=== PATIENT | male | born 1985 | race Caucasian/White ===

== ENCOUNTER 2018-04-07 18:09 | Inpatient (IN) ==
[2018-04-07] MEDS ORDERED: Diphtheria/Tetanus/Pertussis Vaccine Inj 0.5 ML Syringe IM ONE (18:13)
--- NOTE | 2018-04-07 18:28 | CT ---
EXAM DATE: 04/07/2018 6:24 PM EST AGE/SEX: 89 years / Male INDICATIONS: Trauma alert, fall off roof. CLINICAL DATA: This is the patient's initial encounter. Patient reports that signs and symptoms have been present for 1 day and indicates a pain score of Nonresponsive. MEDICAL/SURGICAL HISTORY: Non-responsive. Non-responsive. RADIATION DOSE: 66.34 CTDI (mGy) COMPARISON: No prior exams available for comparison. TECHNIQUE: CT of the head without contrast. Using automated exposure control and adjustment of the mA and/or kV according to patient size, radiation dose was kept as low as reasonably achievable to ob tain optimal diagnostic quality images. DICOM format image data is available electronically for revi ew and comparison. FINDINGS: The patient is tilted in the scanning gantry. There is mild streak artifact Cerebrum: The ventricles are normal for age. No evidence of midline shift, mass lesion, hemorrhage or acute infarction. No extraaxial fluid collections are seen. Posterior Fossa: The cerebellum and brainstem are intact. The 4th ventricle is midline. The cerebe llopontine angle is unremarkable. Extracranial: The visualized portion of the orbits is intact. There is a small retention cyst in the right maxillary sinus. Skull: The calvaria is intact. No evidence of skull fracture. CONCLUSION: 1. Negative trauma CT. . Electronically signed by: Cornel Robertson MD 04/07/2018 6:27 PM EST
--- NOTE | 2018-04-07 18:30 | XR ---
EXAM DATE: 04/07/2018 6:27 PM EST AGE/SEX: 89 years / Male INDICATIONS: Trauma alert. Patient fell from a roof today. CLINICAL DATA: This is the patient's initial encounter. Patient reports that signs and symptoms have been present for 1 day and indicates a pain score of Nonresponsive. MEDICAL/SURGICAL HISTORY: Non-responsive. Non-responsive. COMPARISON: No prior exams available for comparison. FINDINGS: A single AP view of the chest demonstrates the lungs to be symmetrically aerated without evidence of mass, infiltrate or effusion. The cardiomediastinal contours are unremarkable. Osseous structures a re intact. There is overlying artifact from a backboard. There is catheter tubing projected over the chest. CONCLUSION: Negative single view trauma study. Electronically signed by: Cornel Robertson MD 04/07/2018 6:29 PM EST
[2018-04-07 18:43] LABS: Baso % (Auto) 0.1 % (0.0-2.0); Eos # (Auto) 0.2 th/mm3 (0.0-0.4); Eos % (Auto) 2.8 % (0.0-4.0); Hematocrit 42.3 % (39.0-51.0); Hemoglobin 14.4 gm/dL (13.0-17.0); Lymph % (Auto) 22.3 % (9.0-44.0); Mean Corpuscular Hemoglobin 31.2 pg (27.0-34.0); Mean Corpuscular Volume 91.7 fL (80.0-100.0); Mean Platelet Volume 8.5 fL (7.0-11.0); Mono # (Auto) 0.7 th/mm3 (0.0-0.9); Mono % (Auto) 7.7 % (0.0-8.0); Neut # (Auto) 5.9 th/mm3 (1.8-7.7); Neut % (Auto) 67.1 % (16.0-70.0); Platelet Count 270 th/mm3 (150-450); Red Blood Count 4.61 mil/mm3 (4.50-5.90); Red Cell Distribution Width 13.1 % (11.6-17.2); White Blood Count 8.8 th/mm3 (4.0-11.0)
--- NOTE | 2018-04-07 18:48 | CT ---
EXAM DATE: 04/07/2018 6:38 PM EST AGE/SEX: 89 years / Male INDICATIONS: Trauma alert, fall off roof. CLINICAL DATA: This is the patient's initial encounter. Patient reports that signs and symptoms have been present for 1 day and indicates a pain score of Nonresponsive. MEDICAL/SURGICAL HISTORY: Non-responsive. Non-responsive. ORAL CONTRAST: No oral contrast ingested. RADIATION DOSE: 5.68 CTDI (mGy) ; Combined studies COMPARISON: No prior exams available for comparison. TECHNIQUE: Multiple contiguous axial images were obtained through the abdomen and pelvis following b olus infusion of 95 ml Omnipaque 350 (iohexol) nonionic water-soluble contrast as a cumulative dose for multiple exams. No oral contrast ingested. Using automated exposure control and adjustment of t he mA and/or kV according to patient size, radiation dose was kept as low as reasonably achievable to obtain optimal diagnostic quality images. DICOM format image data is available electronically for r eview and comparison. FINDINGS: Lower Lungs: The visualized lower lungs are clear. Liver: The liver has a homogeneous density without space-occupying lesion. There is no dilation of th e biliary tree. The gallbladder is unremarkable in appearance. Spleen: Homogeneous density without enlargement. Pancreas: Unremarkable without mass or calcification. Kidneys: Normal in size and shape. No evidence of mass or hydronephrosis. Adrenal Glands: Unremarkable. Aorta: The aorta and proximal iliac vessels are grossly unremarkable without aneurysmal dilation. Bowel/Mesentery: The bowel loops are grossly unremarkable. The cecum and sigmoid colon have a normal configuration. Abdominal Wall: The anterior abdominal wall is intact. There is a focal soft tissue laceration summer g the left lateral flank region which extends through the subcutaneous fat with with subcutaneous emp hysema extending along the lateral abdominal wall musculature. Retroperitoneum: No evidence of adenopathy in the retrocrural, para-aortic, or deep pelvic regions. Bladder: Contours are smooth. Reproductive Organs: No abnormal masses or calcifications seen. Inguinal: The inguinal region is unremarkable without evidence of adenopathy. Bony Structures: 2. There is a small subtle linear gas collection along the right anterior lateral lower ribs best seen on axial images numbers 30 through 34. This measures up to approximately 2.5 x 0 .5 cm in greatest diameter. This is of unclear significance and could represent dissected air the janell ng the musculature or possibly could be intra-abdominal. CONCLUSION: 1. Focal soft tissue laceration along the left lateral flank region which extends through the subcut aneous fat with emphysema extending along the lateral abdominal wall musculature. 2. There is a small subtle linear gas collection along the right anterior lateral lower ribs best se en on axial images numbers 30 through 34. This measures up to approximately 2.5 x 0.5 cm in greatest diameter. This is of unclear significance and could represent dissected air along the along the muscu lature or possibly could be intra-abdominal. 3. No evidence of acute visceral injury. 4. Fractures of the left posterior lateral 11th and 12th ribs. Electronically signed by: Cornel Robertson MD 04/07/2018 6:47 PM EST
--- NOTE | 2018-04-07 18:51 | CT ---
EXAM DATE: 04/07/2018 6:38 PM EST AGE/SEX: 89 years / Male INDICATIONS: Trauma alert, fall off roof. CLINICAL DATA: This is the patient's initial encounter. Patient reports that signs and symptoms have been present for 1 day and indicates a pain score of Nonresponsive. MEDICAL/SURGICAL HISTORY: Non-responsive. Non-responsive. RADIATION DOSE: 5.68 CTDI (mGy) ; Combined studies COMPARISON: No prior exams available for comparison. TECHNIQUE: Multiple contiguous axial images were obtained through the chest during bolus infusion of 95 ml Omnipaque 350 (iohexol) nonionic water-soluble contrast as a cumulative dose for multiple exa ms. Images were obtained in suspended respiration using multiple row detector helical technique. U sing automated exposure control and adjustment of the mA and/or kV according to patient size, radiati on dose was kept as low as reasonably achievable to obtain optimal diagnostic quality images. DICOM format image data is available electronically for review and comparison. FINDINGS: Lungs: The lungs are symmetrically aerated. No infiltrates or nodular densities are seen. There is a minute collection of gas along the anterior base of the heart seen best on axial image #43. This co uld represent a small pneumothorax. Mediastinum: There is good visualization of the great vessels of the middle mediastinum. No evidenc e of mediastinal or hilar adenopathy/mass. Pleurae: No evidence of focal thickening or pleural effusion. Axillae: Unremarkable. Bony Structures: There are subtle nondisplaced fractures of the left posterior 11th and 12th ribs. Miscellaneous: The examination was extended to include the upper abdomen, and both adrenal glands ar e normal in size and configuration. CONCLUSION: 1. Small gas collection along the anterior base of the heart which could represent a tiny pneumothor ax. 2. Subtle nondisplaced fractures of the left posterior 11th and 12th ribs. Electronically signed by: Cornel Robertson MD 04/07/2018 6:50 PM EST
[2018-04-07 18:55] LABS: Activated Partial Thrombo Time 21.7 sec (23.4-31.7); INR 1.1 Ratio; Prothrombin Time 11.5 sec (9.8-11.6)
--- NOTE | 2018-04-07 18:55 | CT ---
EXAM DATE: 04/07/2018 6:41 PM EST AGE/SEX: 89 years / Male INDICATIONS: Trauma alert, fall off roof. CLINICAL DATA: This is the patient's initial encounter. Patient reports that signs and symptoms have been present for 1 day and indicates a pain score of Nonresponsive. MEDICAL/SURGICAL HISTORY: Non-responsive. Non-responsive. RADIATION DOSE: 23.47 CTDI (mGy) COMPARISON: No prior exams available for comparison. TECHNIQUE: Contiguous axial images were obtained using helical multirow detector technique. The vol umetric data was post-processed with multiplanar reconstruction in oblique axial, sagittal, and coron al planes. Using automated exposure control and adjustment of the mA and/or kV according to patient s ize, radiation dose was kept as low as reasonably achievable to obtain optimal diagnostic quality katlin ges. DICOM format image data is available electronically for review and comparison. FINDINGS: Vertebrae: Normal vertebral body height. Alignment: Normal. No subluxation. The axial images demonstrate that the vertebral bodies and posterior elements are intact with no evid ence of fracture. The prevertebral soft tissues are within normal limits. CONCLUSION: 1. Negative trauma CT. Electronically signed by: Cornel Robertson MD 04/07/2018 6:54 PM EST
[2018-04-07] MEDS ORDERED: Morphine Inj 4 MG/ML Vial IV.PUSH ONE (19:06)
[2018-04-07] MEDS ORDERED: Acetaminophen 325 MG Tablet PO PRN (19:13)
[2018-04-07] MEDS ORDERED: Lidocaine 5% Patch T-DERMAL ONE (19:15)
--- NOTE | 2018-04-07 19:21 | P.HPCC ---
History of Present Illness Primary Care Physician: No Primary Care Physician Chief Complaint: Lower back pain History of Present Illness: 32-year-old gentleman who was working on a roof when he fell approximately 15 feet by report. There was no loss of consciousness but he was brought in as a trauma alert for back pain suspicion of spinal cord injury as well as a penetrating left flank injury. Patient arrived alert and oriented with a Lance Coma Scale of 15 he was in pain but no acute distress he had a laceration to his left flank and abrasions across his chest and abdomen and superficial abrasions on his arms. 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 - Medical / Surgical Hx Neg / Unobtainable Medical Problems Denied: Yes Surgical History: No Previous Surgery - Tobacco History Second Hand Smoke Exposure: No Tobacco Use In Past 30 Days: No Smoking Status: Never smoker - Alcohol History How Often Do You Have a Drink Containing Alcohol: Never - Substance Use History Substance History: No History of Abuse - Travel History Recent Travel in the [facility] Within the Last 8 Weeks: No Recent Travel Out of the Country Within the Last 8 Weeks: No Medications and Allergies Active Medications: Active Medications Patch Removal (Remove Old Patch) 1 each T-DERMAL HS CARMELLA Allergies Allergy/AdvReac Type Severity Reaction Status Date / Time No Allergy Information Allergy Unverified 04/07/18 18:09 Available Home Medications Medication Instructions Recorded Confirmed Type No Known Home Medications 04/07/18 04/07/18 History Results - Labs CBC & Chem 7: 04/07/18 18:11 Labs: Short CBC 04/07/18 Range/Units 18:11 WBC 8.8 (4.0-11.0) th/mm3 Hgb 14.4 (13.0-17.0) gm/dL Hct 42.3 (39.0-51.0) % Plt Count 270 (150-450) th/mm3 - Imaging Impressions Chest X-Ray 04/07/18 18:10 CONCLUSION: Negative single view trauma study. Abdomen/Pelvis CT 04/07/18 18:12 CONCLUSION: 1. Focal soft tissue laceration along the left lateral flank region which extends through the subcutaneous fat with emphysema extending along the lateral abdominal wall musculature. 2. There is a small subtle linear gas collection along the right anterior lateral lower ribs best seen on axial images numbers 30 through 34. This measures up to approximately 2.5 x 0.5 cm in greatest diameter. This is of unclear significance and could represent dissected air along the along the musculature or possibly could be intra-abdominal. 3. No evidence of acute visceral injury. 4. Fractures of the left posterior lateral 11th and 12th ribs. Chest CT 04/07/18 18:12 CONCLUSION: 1. Small gas collection along the anterior base of the heart which could represent a tiny pneumothorax. 2. Subtle nondisplaced fractures of the left posterior 11th and 12th ribs. Head CT 04/07/18 18:12 CONCLUSION: 1. Negative trauma CT. . Cervical Spine CT 04/07/18 18:13 CONCLUSION: 1. Negative trauma CT. Exam Vital signs: Vital Signs 04/07/18 18:15 04/07/18 19:09 Pulse Rate 86 Pulse Oximetry 97 Intake & Output 04/07/18 04/07/18 04/08/18 06:59 18:59 06:59 Weight 99.79 kg - Constitutional mild distress - Routine HEENT Exam Head: Present: normocephalic, atraumatic Eye: Present: EOMI, PERRL ENT: Present: mucous membranes moist - Routine Neck Exam Present: trachea midline. Absent: tenderness - Routine Chest/Breast/Axilla Exam Chest wall: Absent: tenderness - Routine Respiratory Exam Present: CTA bilaterally - Routine Cardiovascular Exam Present: RRR - Routine Abdominal Exam Present: soft. Absent: tenderness, distended - Routine Extremities Exam Absent: cyanosis, clubbing, edema - Routine Skin Exam Present: wounds (1 cm deep laceration to the left lateral abdominal wall with surrounding abrasions through the subcutaneous fat) - Routine Neurological Exam Present: alert, oriented X3, CN II-XII intact. Absent: sensory deficit, motor deficit Caprini VTE Risk Assessment Caprini VTE Risk Assessment: No/Low Risk (score <= 1) VTE Pharmacological Exception Reason: Hemorrhage Caprini Risk Assessment Model: Point Value = 1 Point Value = 2 Point Value = 3 Point Value = 5 Age 41-60 Minor surgery BMI > 25 kg/m2 Swollen legs Varicose veins or History of unexplained or recurrent spontaneous Oral contraceptives or hormone replacement Sepsis (< 1 month) Serious lung disease, including pneumonia (< 1 month) Abnormal pulmonary function Acute myocardial infarction Congestive heart failure (< 1 month) History of inflammatory bowel disease Medical patient at bed rest Age 61-74 Arthroscopic surgery Major open surgery (> 45 min) Laparoscopic surgery (> 45 min) Malignancy Confined to bed (> 72 hours) Immobilizing plaster cast Central venous access Age >= 75 History of VTE Family history of VTE Factor V Leiden Prothrombin [id number] Lupus anticoagulant Anticardiolipin antibodies Elevated serum homocysteine Heparin-induced thrombocytopenia Other congenital or acquired thrombophilia Stroke (< 1 month) Elective arthroplasty Hip, pelvis, or leg fracture Acute spinal cord injury (< 1 month) Prophylaxis Regimen: Total Risk Factor Score Risk Level Prophylaxis Regimen 0-1 Low Early ambulation 2 Moderate Order ONE of the following: *Sequential Compression Device (SCD) *Heparin 5000 units SQ BID 3-4 Higher Order ONE of the following medications: *Heparin 5000 units SQ TID *Enoxaparin/Lovenox 40 mg SQ daily (WT < 150 kg, CrCl > 30 mL/min) *Enoxaparin/Lovenox 30 mg SQ daily (WT < 150 kg, CrCl > 10-29 mL/min) *Enoxaparin/Lovenox 30 mg SQ BID (WT < 150 kg, CrCl > 30 mL/min) AND/OR *Sequential Compression Device (SCD) 5 or more Highest Order ONE of the following medications: *Heparin 5000 units SQ TID (Preferred with Epidurals) *Enoxaparin/Lovenox 40 mg SQ daily (WT < 150 kg, CrCl > 30 mL/min) *Enoxaparin/Lovenox 30 mg SQ daily (WT < 150 kg, CrCl > 10-29 mL/min) *Enoxaparin/Lovenox 30 mg SQ BID (WT < 150 kg, CrCl > 30 mL/min) AND *Sequential Compression Device (SCD) Assessment and Plan - Assessment and Plan Plan: Admit to the trauma service overnight for observation Aggressive pulmonary toilet Adequate pain control Repeat chest x-ray in the morning to track potential progress of pneumothorax
--- NOTE | 2018-04-07 19:22 | CT ---
EXAM DATE: 04/07/2018 7:17 PM EST AGE/SEX: 89 years / Male INDICATIONS: Trauma alert, fell from roof. CLINICAL DATA: This is the patient's initial encounter. Patient reports that signs and symptoms have been present for 1 day and indicates a pain score of Nonresponsive. MEDICAL/SURGICAL HISTORY: Non-responsive. Non-responsive. RADIATION DOSE: . CTDI (mGy) ; Reconstructed from previous dataset, no dose COMPARISON: No prior exams available for comparison. TECHNIQUE: Contiguous axial images were acquired with a multirow detector CT scanner after intraveno us administration of 95 ml Omnipaque 350 (iohexol) nonionic water-soluble contrast as a cumulative d ose for multiple exams. Multiplanar reconstructions in the sagittal and coronal plane were also perf ormed. Using automated exposure control and adjustment of the mA and/or kV according to patient size, radiation dose was kept as low as reasonably achievable to obtain optimal diagnostic quality images. DICOM format image data is available electronically for review and comparison. FINDINGS: Vertebrae: Normal vertebral body height. Alignment: Normal. No subluxation. Post Contrast: No abnormal areas of enhancement are seen in the cord, dural or paraspinal regions. T12-L1: The thecal sac has a normal diameter. No evidence of disc bulge or protrusion. The neural foramina are patent bilaterally. L1-L2: The thecal sac has a normal diameter. No evidence of disc bulge or protrusion. The neural f oramina are patent bilaterally. L2-L3: The thecal sac has a normal diameter. No evidence of disc bulge or protrusion. The neural f oramina are patent bilaterally. L3-L4: The thecal sac has a normal diameter. No evidence of disc bulge or protrusion. The neural f oramina are patent bilaterally. L4-L5: The thecal sac has a normal diameter. No evidence of disc bulge or protrusion. The neural f oramina are patent bilaterally. L5-S1: The disc has mild loss of height. A small, partly calcified right paracentral disc protrusion is present and causes mild narrowing of the right lateral recess. Mild bilateral facet osteoarthriti s. There is no significant foraminal stenosis. CONCLUSION: 1. Intact lumbar spine. 2. Mild degenerative changes at L5/S1 with mild right lateral recess narrowing. Electronically signed by: Sg Odell MD 04/07/2018 7:20 PM EST
--- NOTE | 2018-04-07 19:31 | ED ---
HPI General Chief complaint: Trauma Alert Stated complaint: Trauma Alert Time Seen by Provider: 04/07/18 18:37 Source: patient and EMS Mode of arrival: EMS History of Present Illness HPI narrative: 32yM brought in by EMS after falling off a roof. The patient works at a [employer] and fell off of a roof, through the roof of a trailer next to the building. He denies LOC but sustained a puncture wound/ laceration to his left lower abdomen. He also complains of low back pain. He does not take any anticoagulants or antiplatelets, does not recall when his last tetanus booster was. Related Data Home Medications Medication Instructions Recorded Confirmed No Known Home Medications 04/07/18 04/07/18 Allergies Allergy/AdvReac Type Severity Reaction Status Date / Time No Allergy Information Allergy Unverified 04/07/18 18:09 Available Review of Systems ROS: all other systems reviewed are negative PMFSH History History Provided By: Patient Social History Social History Substance History: No History of Abuse Second Hand Smoke Exposure: No Smoking Status: Never smoker How Often Do You Have a Drink Containing Alcohol: Never Recent Travel in [facility] within the Last 8 Weeks: No Recent Out of Country Travel within the Last 8 Weeks: No Exam Const Other: Well appearing, mild painful distress [facility] Head: normocephalic and atraumatic Face and sinus: normal facial exam Other: No apparent facial or intraoral trauma Eyes Other: Pupils 3 mm and reactive bilaterally Neck Other: Trachea midline, cervical collar maintained due to mechanism/ distracting injury Chest Other: Superficial abrasions across left lower chest, no flail chest Resp Other: Breath sounds present and equal bilaterally Cardio Rate: regular rate Rhythm: regular rhythm GI Palpation: soft and nontender Other: 2 cm puncture wound/ laceration to left lower abdomen in anterior axillary line, no active bleeding FAST negative Back/Spine/Pelvis Other: No midline thoracolumbar tenderness Skin Other: Superficial abrasions to dorsum of left hand and right medial wrist Neuro General: alert, awake and oriented x3 Other: GCS 15 Course Initial Documented Vital Signs Pulse Oximetry 97 04/07/18 18:15 Last Documented Vital Signs Pulse Rate 86 04/07/18 19:09 Pulse Oximetry 96 04/07/18 19:17 Critical Care Time Critical Care Time: Yes Total Critical Care Time: 38 Attestation: Counseling/ Coordination of Care: This patient is critically ill with impairment of one or more vital organ systems with a high probability of imminent or life-threatening deterioration. High-complexity medical decision making was required to support vital organ function and/ or prevent deterioration in the patient's condition. Total critical care time spent is 38 minutes giving full attention to this patient. This includes examining and stabilizing the patient, gathering a history from a source other than the patient (i.e., EMS), formulating a differential diagnosis, ordering and interpreting laboratory tests, ordering and interpreting radiology tests, discussing the patient's care with other providers (trauma surgeon), re-evaluation at frequent intervals, and documentation. Amount of time is separate from teaching, counseling the patient and/or family, and exclusive of procedures. Medical Decision Making MDM Narrative Medical decision making narrative: Assessment: 32yM presenting with puncture wound Plan: Level 1 trauma called prior to arrival, patient seen in trauma bay by Dr. Love CXR and pelvic X-ray negative FAST negative Tetanus updated CT scans show left 11th and 12th rib fractures with tiny PTX, will keep for observation and repeat CXR in AM as per Dr. Love Puncture wound does not extend intra-peritoneally, jesús placed by trauma surgeon (1 off-center staple removed by vt) Very small spot of air in left lower chest/ upper abdomen, likely not clinically significant Patient understands and agrees with plan Medical Screen Exam Complete: Yes Emergency Medical Condition: Yes Differential Diagnosis Differential Diagnosis: Differential diagnosis includes, but is not limited to: ICH, spinal fracture, traumatic injury in chest/ abd/ pelvis Lab Data Result diagrams: 04/07/18 18:11 Lab Results 04/07/18 04/07/18 04/07/18 Range/Units 18:11 18:11 18:11 WBC 8.8 (4.0-11.0) th/mm3 RBC 4.61 (4.50-5.90) mil/mm3 Hgb 14.4 (13.0-17.0) gm/dL POC Hgb (Calc) 13.6 (13.0-17.0) g/dL Hct 42.3 (39.0-51.0) % POC Hct 40.0 (39-51.0) % MCV 91.7 (80.0-100.0) fL MCH 31.2 (27.0-34.0) pg MCHC 34.0 (32.0-36.0) % RDW 13.1 (11.6-17.2) % Plt Count 270 (150-450) th/mm3 MPV 8.5 (7.0-11.0) fL Neut % (Auto) 67.1 (16.0-70.0) % Lymph % (Auto) 22.3 (9.0-44.0) % [place] % (Auto) 7.7 (0.0-8.0) % Eos % (Auto) 2.8 (0.0-4.0) % Baso % (Auto) 0.1 (0.0-2.0) % Neut # (Auto) 5.9 (1.8-7.7) th/mm3 Lymph # (Auto) 2.0 (1.0-4.8) th/mm3 [place] # (Auto) 0.7 (0.0-0.9) th/mm3 Eos # (Auto) 0.2 (0.0-0.4) th/mm3 Baso # (Auto) 0.0 (0.0-0.2) th/mm3 WBC Differential . Differential Comment Auto diff final PT 11.5 (9.8-11.6) sec INR 1.1 Ratio APTT 21.7 L (23.4-31.7) sec POC Sodium 140 (137-144) mmol/L POC Potassium 3.3 L (3.6-5.0) mmol/L POC Chloride 100 L (102-111) mmol/L POC BUN 23 H (5-21) mg/dL POC Creatinine 1.0 (0.6-1.3) mg/dL POC Glucose 106 (68-110) mg/dL Blood Type Antibody Screen 04/07/18 Range/Units 18:11 WBC (4.0-11.0) th/mm3 RBC (4.50-5.90) mil/mm3 Hgb (13.0-17.0) gm/dL POC Hgb (Calc) (13.0-17.0) g/dL Hct (39.0-51.0) % POC Hct (39-51.0) % MCV (80.0-100.0) fL MCH (27.0-34.0) pg MCHC (32.0-36.0) % RDW (11.6-17.2) % Plt Count (150-450) th/mm3 MPV (7.0-11.0) fL Neut % (Auto) (16.0-70.0) % Lymph % (Auto) (9.0-44.0) % [place] % (Auto) (0.0-8.0) % Eos % (Auto) (0.0-4.0) % Baso % (Auto) (0.0-2.0) % Neut # (Auto) (1.8-7.7) th/mm3 Lymph # (Auto) (1.0-4.8) th/mm3 [place] # (Auto) (0.0-0.9) th/mm3 Eos # (Auto) (0.0-0.4) th/mm3 Baso # (Auto) (0.0-0.2) th/mm3 WBC Differential Differential Comment PT (9.8-11.6) sec INR Ratio APTT (23.4-31.7) sec POC Sodium (137-144) mmol/L POC Potassium (3.6-5.0) mmol/L POC Chloride (102-111) mmol/L POC BUN (5-21) mg/dL POC Creatinine (0.6-1.3) mg/dL POC Glucose (68-110) mg/dL Blood Type A Positive Antibody Screen Negative Imaging Data Radiologist's impression: Lumbar Spine CT 04/07/18 00:00 CONCLUSION: 1. Intact lumbar spine. 2. Mild degenerative changes at L5/S1 with mild right lateral recess narrowing. Chest X-Ray 04/07/18 18:10 CONCLUSION: Negative single view trauma study. Abdomen/Pelvis CT 04/07/18 18:12 CONCLUSION: 1. Focal soft tissue laceration along the left lateral flank region which extends through the subcutaneous fat with emphysema extending along the lateral abdominal wall musculature. 2. There is a small subtle linear gas collection along the right anterior lateral lower ribs best seen on axial images numbers 30 through 34. This measures up to approximately 2.5 x 0.5 cm in greatest diameter. This is of unclear significance and could represent dissected air along the along the musculature or possibly could be intra-abdominal. 3. No evidence of acute visceral injury. 4. Fractures of the left posterior lateral 11th and 12th ribs. Chest CT 04/07/18 18:12 CONCLUSION: 1. Small gas collection along the anterior base of the heart which could represent a tiny pneumothorax. 2. Subtle nondisplaced fractures of the left posterior 11th and 12th ribs. Head CT 04/07/18 18:12 CONCLUSION: 1. Negative trauma CT. . Cervical Spine CT 04/07/18 18:13 CONCLUSION: 1. Negative trauma CT. Discharge Plan Discharge Disposition Patient Disposition: 30 Still Patient Discharge Condition Condition: Stable Discharge Details Diagnosis: Fracture, ribs, Pneumothorax, Puncture wound Physicians Team ED Provider: Masha Daugherty Primary Care Provider: Primary Care Leeann Mariano Attending Provider: Ike Love Status ED Status: Admitted Observation Patient
[2018-04-07] MEDS: Enoxaparin Inj 30 MG/0.3 ML Syringe SQ SCH (21:07)
[2018-04-07] MEDS: Docusate Sodium 100 MG Capsule PO SCH (21:07)
[2018-04-07] MEDS: Sodium Chloride 0.9% 2 ML Flush BID IV.FLUSH SCH (22:37)
[2018-04-07] MEDS: Methocarbamol 500 MG Tablet PO SCH (22:37)
[2018-04-08] MEDS ORDERED: Chlorhexidine Gluconate 2% 1 Pack (2 Cloths) TOPICAL SCH (04:00)
[2018-04-08] MEDS ORDERED: Chlorhexidine Gluconate 2% 1 Pack (2 Cloths) TOPICAL PRN (04:00)
[2018-04-08] MEDS: Methocarbamol 500 MG Tablet PO SCH (06:43)
[2018-04-08 06:54] LABS: Baso % (Auto) 0.1 % (0.0-2.0); Eos % (Auto) 0.5 % (0.0-4.0); Hematocrit 39.1 % (39.0-51.0); Hemoglobin 13.7 gm/dL (13.0-17.0); Lymph # (Auto) 1.3 th/mm3 (1.0-4.8); Lymph % (Auto) 17.8 % (9.0-44.0); Mean Corpuscular Hemoglobin 31.9 pg (27.0-34.0); Mean Corpuscular Volume 91.1 fL (80.0-100.0); Mean Platelet Volume 8.3 fL (7.0-11.0); Mono # (Auto) 1.1 th/mm3 (0.0-0.9); Mono % (Auto) 16.2 % (0.0-8.0); Neut # (Auto) 4.6 th/mm3 (1.8-7.7); Neut % (Auto) 65.4 % (16.0-70.0); Platelet Count 246 th/mm3 (150-450); Red Cell Distribution Width 13.3 % (11.6-17.2); White Blood Count 7.1 th/mm3 (4.0-11.0)
[2018-04-08 07:12] LABS: Anion Gap 8 meq/L (5-15); Blood Urea Nitrogen 17 mg/dL (7-18); Calcium 8.4 mg/dL (8.5-10.1); Carbon Dioxide 27.7 meq/L (21.0-32.0); Chloride 104 meq/L (98-107); Glomerular Filtration Rate Greater Than 89 mL/min (>89); Glucose,Random 121 mg/dL (74-106); Potassium 3.7 meq/L (3.5-5.1); Sodium 140 meq/L (136-145)
--- NOTE | 2018-04-08 07:58 | XR ---
EXAM DATE: 04/08/2018 7:55 AM EST AGE/SEX: 32 years / Male INDICATIONS: Evaluate pneumothorax CLINICAL DATA: This is the patient's subsequent encounter. Patient reports that signs and symptoms h ave been present for 2 days and indicates a pain score of 0/10. MEDICAL/SURGICAL HISTORY: None. None. [place] [facility] [place]. . FINDINGS: The lungs are clear without infiltrate, nodule, or mass. There is no appreciable pleural effusion fo r technique. Heart and mediastinum are unremarkable. CONCLUSION: No acute cardiopulmonary disease. Electronically signed by: Rosette Dominguez MD 04/08/2018 7:56 AM EST
[2018-04-08 08:03] VITALS: O2SAT 98
[2018-04-08] MEDS: Enoxaparin Inj 30 MG/0.3 ML Syringe SQ SCH (08:44)
[2018-04-08] MEDS: Docusate Sodium 100 MG Capsule PO SCH (08:44)
[2018-04-08 08:46] VITALS: RESP 16
[2018-04-08] MEDS: Sodium Chloride 0.9% 2 ML Flush BID IV.FLUSH SCH (08:46)
[2018-04-08 08:49] VITALS: BP 111/68; PULSE 61; TEMP 97.9
--- NOTE | 2018-04-08 11:39 | P.DS ---
<Shanon Medellin F - Last Filed: 04/08/18 11:16> Date of admission: 04/07/18 19:13 Primary care physician: No Primary Care Physician Attending physician on discharge: Ike Love Anticipated date of discharge: 04/08/18 Brief History from admission: Fall from a roof DS: Diagnosis - Discharge Diagnosis (1) Fracture, ribs Status: Acute (2) Pneumothorax Status: Acute (3) Puncture wound Status: Acute DS: Medications - Discharge Medications Prescriptions: ibuprofen [Motrin IB] 400 mg PO Q6H PRN 5 Days tab PRN Reason: pain lidocaine [Lidoderm] 1 patch TOPICAL DAILY 7 Days #7 ea methocarbamol 500 mg PO Q8HR 7 Days #21 tab oxycodone-acetaminophen [Percocet] 1 tab PO Q4H PRN 3 Days #18 tab PRN Reason: Pain DS: Summary Hospital Course: [place]: This is a 32-year-old gentleman who was working on a roof when he fell approximately 15 feet by report. There was no loss of consciousness but he was brought in as a trauma alert for back pain suspicion of spinal cord injury as well as a penetrating left flank injury. Patient arrived alert and oriented with a Lance Coma Scale of 15. He was in pain but no acute distress he had a laceration to his left flank and abrasions across his chest and abdomen and superficial abrasions on his arms. INJURIES: LEFT rib fx (11,12) LEFT tiny PTX Puncture wound to LEFT lower abdomen. Consults: Case management The patient is now tolerating a po diet. Eating and drinking well. Pain is being managed well with PO pain medications, and patient is being a provided with a script for pain meds upon discharge. [This patient will be prescribed narcotic pain medications due to his traumatic injuries. The patient has a normal physiological response to severe traumatic injuries and surgery. He will need acute pain management with prescribed narcotic treatment. The [employer] prescription drug monitoring program database has been queried.] (NO driving while taking narcotic pain medication enforced to patient.) Pt is having regular bowel movements, and have recommended to patient to continue with stool softeners while taking narcotic pain medications to prevent constipation. Pt has been participating in PT while admitted at [place] and has been ambulating with their assistance and independently. No home PT needs. All follow up appointments have been provided and discussed with the patient. It is recommended that the patient keeps all his follow up appointments for continued recovery. Patient's condition and plan of care discussed with collaborating trauma surgeon. He is agreeable to plan for discharge today. Therefore, the patient is stable to be safely discharged home from a trauma surgery standpoint. Thank you for allowing us to participate in his care. We wish Feliciano the best in his recovery. LEFT rib fx (11,12) LEFT tiny PTX O2 nasal cannula as needed Supportive care Aggressive pulmonary toileting Follow-up chest x-ray is stable with no PTX Pain management Encourage out of bed PT ordered Bowel regimen Lovenox for DVT prophylaxis Puncture wound to LEFT lower abdomen / flank Wash staple line gently with soap and water daily. Pat dry. May cover if needed Report any increase of redness, swelling, or drainage. Return to PCP for staple removal in 7-10 days - Time Spent with Patient Total time spent providing and/or coordinating discharge services: Greater than 30 minutes - Quality: VTE Deep Vein Thrombosis/Pulmonary Embolism Present on Admission: No Exam Vital signs: Vital Signs 04/07/18 18:15 04/07/18 19:09 04/07/18 19:17 Temperature Pulse Rate 86 Respiratory Rate Blood Pressure Pulse Oximetry 97 96 04/07/18 20:04 04/07/18 22:00 04/08/18 00:34 Temperature 97.8 F 97.5 F L Pulse Rate 81 79 77 Respiratory Rate 20 18 18 Blood Pressure 113/58 L 118/56 L 111/62 Pulse Oximetry 99 98 97 04/08/18 01:00 04/08/18 04:00 04/08/18 08:03 Temperature 98 F 98 F Pulse Rate 68 62 Respiratory Rate 18 18 Blood Pressure 114/61 123/63 Pulse Oximetry 96 97 98 04/08/18 08:44 04/08/18 08:48 Temperature 97.9 F Pulse Rate 61 Respiratory Rate 16 16 Blood Pressure 111/68 Pulse Oximetry Intake & Output 04/07/18 04/08/18 04/08/18 18:59 06:59 18:59 Intake Total 1000 / 1000 Balance 1000 / 1000 Weight 100.6 kg Intake: IV 1000 / 1000 LR 1000 mL Inj 1,000 ML @ 100 1000 / 1000 mls/hr IV.CONT .Q10H [facility] Rx#: [id number] Other: # Voids 1 Date of Last Bowel Movement 04/07/18 Weight On Admission 100 kg Narrative: GENERAL: This is a 32-year-old male lying in bed. No distress noted. SKIN: Warm and dry. HEAD: Atraumatic. Normocephalic. EYES: PERRLA ENT: No nasal bleeding or discharge. Mucous membranes pink and moist. NECK: Trachea midline. No JVD. CARDIOVASCULAR: Regular rate and rhythm. RESPIRATORY: No accessory muscle use. Lungs are clear to auscultation. Breath sounds equal bilaterally. No distress or dyspnea. GASTROINTESTINAL: BS + x 4 quads. Abdomen soft, non-tender, nondistended. Left flank suture line noted. CDI. Well approximated. MUSCULOSKELETAL: Extremities without cyanosis, or edema. + peripheral pulses x 4 extremities. Warm with good capillary refill and sensation. MAEW. NEUROLOGICAL: Awake and alert. Normal speech and pattern. Results Procedures completed during hospitalization: . Labs on day of discharge: Labs from last 24 hours 04/08/18 04/08/18 04/08/18 06:00 06:00 02:55 WBC 7.1 RBC 4.30 L Hgb 13.7 POC Hgb (Calc) Hct 39.1 POC Hct MCV 91.1 MCH 31.9 MCHC 35.0 RDW 13.3 Plt Count 246 MPV 8.3 Neut % (Auto) 65.4 Lymph % (Auto) 17.8 [place] % (Auto) 16.2 H Eos % (Auto) 0.5 Baso % (Auto) 0.1 Neut # (Auto) 4.6 Lymph # (Auto) 1.3 [place] # (Auto) 1.1 H Eos # (Auto) 0.0 Baso # (Auto) 0.0 WBC Differential . Differential Comment Auto diff final PT INR APTT POC Sodium Sodium 140 POC Potassium Potassium 3.7 POC Chloride Chloride 104 Carbon Dioxide 27.7 Anion Gap 8 POC BUN BUN 17 Creatinine 0.81 POC Creatinine Estimated GFR Greater than 89 POC Glucose Random Glucose 121 H Calcium 8.4 L Nasal Screen MRSA (PCR) Not detected Blood Type Antibody Screen 04/07/18 04/07/18 04/07/18 18:11 18:11 18:11 WBC RBC Hgb POC Hgb (Calc) 13.6 Hct POC Hct 40.0 MCV MCH MCHC RDW Plt Count MPV Neut % (Auto) Lymph % (Auto) [place] % (Auto) Eos % (Auto) Baso % (Auto) Neut # (Auto) Lymph # (Auto) [place] # (Auto) Eos # (Auto) Baso # (Auto) WBC Differential Differential Comment PT 11.5 INR 1.1 APTT 21.7 L POC Sodium 140 Sodium POC Potassium 3.3 L Potassium POC Chloride 100 L Chloride Carbon Dioxide Anion Gap POC BUN 23 H BUN Creatinine POC Creatinine 1.0 Estimated GFR POC Glucose 106 Random Glucose Calcium Nasal Screen MRSA (PCR) Blood Type A Positive Antibody Screen Negative 04/07/18 18:11 WBC 8.8 RBC 4.61 Hgb 14.4 POC Hgb (Calc) Hct 42.3 POC Hct MCV 91.7 MCH 31.2 MCHC 34.0 RDW 13.1 Plt Count 270 MPV 8.5 Neut % (Auto) 67.1 Lymph % (Auto) 22.3 [place] % (Auto) 7.7 Eos % (Auto) 2.8 Baso % (Auto) 0.1 Neut # (Auto) 5.9 Lymph # (Auto) 2.0 [place] # (Auto) 0.7 Eos # (Auto) 0.2 Baso # (Auto) 0.0 WBC Differential . Differential Comment Auto diff final PT INR APTT POC Sodium Sodium POC Potassium Potassium POC Chloride Chloride Carbon Dioxide Anion Gap POC BUN BUN Creatinine POC Creatinine Estimated GFR POC Glucose Random Glucose Calcium Nasal Screen MRSA (PCR) Blood Type Antibody Screen - Impressions ITS Impressions Lumbar Spine CT 04/07/18 00:00 CONCLUSION: 1. Intact lumbar spine. 2. Mild degenerative changes at L5/S1 with mild right lateral recess narrowing. Abdomen/Pelvis CT 04/07/18 18:12 CONCLUSION: 1. Focal soft tissue laceration along the left lateral flank region which extends through the subcutaneous fat with emphysema extending along the lateral abdominal wall musculature. 2. There is a small subtle linear gas collection along the right anterior lateral lower ribs best seen on axial images numbers 30 through 34. This measures up to approximately 2.5 x 0.5 cm in greatest diameter. This is of unclear significance and could represent dissected air along the along the musculature or possibly could be intra-abdominal. 3. No evidence of acute visceral injury. 4. Fractures of the left posterior lateral 11th and 12th ribs. Chest CT 04/07/18 18:12 CONCLUSION: 1. Small gas collection along the anterior base of the heart which could represent a tiny pneumothorax. 2. Subtle nondisplaced fractures of the left posterior 11th and 12th ribs. Head CT 04/07/18 18:12 CONCLUSION: 1. Negative trauma CT. . Cervical Spine CT 04/07/18 18:13 CONCLUSION: 1. Negative trauma CT. Chest X-Ray 04/08/18 06:00 CONCLUSION: No acute cardiopulmonary disease. <Ike Love - Last Filed: 04/09/18 08:47> Date of admission: 04/07/18 19:13 Primary care physician: No Primary Care Physician DS: Summary - Time Spent with Patient Total time spent providing and/or coordinating discharge services: Exam Vital signs: Vital Signs 04/08/18 08:48 Temperature 97.9 F Pulse Rate 61 Respiratory Rate 16 Blood Pressure 111/68 Intake & Output 04/08/18 04/09/18 04/09/18 18:59 06:59 18:59 Intake Total 1000 / 1000 Balance 1000 / 1000 Intake: IV 1000 / 1000 LR 1000 mL Inj 1,000 ML @ 100 1000 / 1000 mls/hr IV.CONT .Q10H [facility] Rx#: [id number] - Additional findings Additional findings: The exam, history, and the medical decision-making described in the above note were completed with the assistance of the mid-level provider. I reviewed and agree with the findings presented. I attest that I had a [id number] encounter with the patient on the same day, and personally performed and documented my assessment and findings in the medical record. Results - Impressions ITS Impressions Lumbar Spine CT 04/07/18 00:00 CONCLUSION: 1. Intact lumbar spine. 2. Mild degenerative changes at L5/S1 with mild right lateral recess narrowing. Abdomen/Pelvis CT 04/07/18 18:12 CONCLUSION: 1. Focal soft tissue laceration along the left lateral flank region which extends through the subcutaneous fat with emphysema extending along the lateral abdominal wall musculature. 2. There is a small subtle linear gas collection along the right anterior lateral lower ribs best seen on axial images numbers 30 through 34. This measures up to approximately 2.5 x 0.5 cm in greatest diameter. This is of unclear significance and could represent dissected air along the along the musculature or possibly could be intra-abdominal. 3. No evidence of acute visceral injury. 4. Fractures of the left posterior lateral 11th and 12th ribs. Chest CT 04/07/18 18:12 CONCLUSION: 1. Small gas collection along the anterior base of the heart which could represent a tiny pneumothorax. 2. Subtle nondisplaced fractures of the left posterior 11th and 12th ribs. Head CT 04/07/18 18:12 CONCLUSION: 1. Negative trauma CT. . Cervical Spine CT 04/07/18 18:13 CONCLUSION: 1. Negative trauma CT. Chest X-Ray 04/08/18 06:00 CONCLUSION: No acute cardiopulmonary disease. Discharge Plan - Discharge Order Discharge Orders: Discharge Order (Routine); Ordered 04/08/18 Ordered By: Shanon Medellin - Discharge Details Anticipated Discharge Date: 04/08/18 - Physicians Team Primary Care Provider: Primary Care Physici,No Attending Provider: Ike Love Other Providers: Barak Young MD ; Ike Love MD ; Systems[facility] [employer] [facility] ; Pepe Cazares MD ; Shanon Medellin ARNP ; Dk Marroquin MD ; Rachna Allen MD ; Contreras Mari ARNP ; Faith Young MD
== END 2018-04-08 12:02 | disposition home or self-care (01) ==
LOC: NEDA 18:09 → NEPI 18:09 → OBSVTOIN 19:18 → EDBD 19:18 → H7ONC 21:45 → N05 04-08 00:54
PROVIDERS: ADMIT Surgery; ATTEND Surgery